=== PATIENT | male | born 1950 | race Caucasian/White ===

== ENCOUNTER 2024-07-25 17:51 | Outpatient (REF) | payer MEDICARE, MEDICAID, SELFPAY ==
[2024-07-25 18:15] LABS: Potassium 5.2 mmol/L (3.5-5.1)
== END 2024-07-25 17:52 | disposition home or self-care (01) ==
LOC: LAB 17:51
PROVIDERS: Visit Provider Student in an Organized Health Care Education/Training Program
DX: N18.31 Chronic kidney disease, stage 3a (principal)
CPT/HCPCS: 36415; 84132